=== PATIENT | female | born 2000 | race American Indian/Alaskan Native ===

== ENCOUNTER 2020-08-03 13:53 | Emergency (ER) | payer MEDICAID, OTHER ==
[2020-08-03 14:59] VITALS: BP 132/62
--- NOTE | 2020-08-03 15:44 | Emergency Department Report ---
Chief Complaint: Eye Problems Stated Complaint: ALEX EYE PAIN Time Seen by Provider: 08/03/20 15:25 - HPI History of Present Illness: 19-year-old -[place] female patient presents with complaints of bilateral eye light sensitivity and intermittent pressure x2 weeks. She denies any current pain, headaches, vision changes, numbness/tingling/weakness in her limbs, difficulty with speech/ambulation, or contact lens use. She states she called the assistant professor of mathematics today and they referred her to the emergency department. No past medical history per patient. She denies any drainage, itching, or redness to the eyes. - Exam Vital Signs: Vital Signs 08/03/20 14:58 Temperature 98.3 F Pulse Rate 60 Respiratory 15 Rate Blood Pressure 132/62 O2 Sat by Pulse 100 Oximetry MSE screening note: Focused history and physical exam performed. Due to findings the following was ordered: ED Medical Decision Making - Medical Decision Making Eye exam is normal. Recommend follow-up with the assistant professor of mathematics within 3 days. Discussed signs and symptoms that should prompt immediate return to the emergency department in detail with patient who verbalizes understanding. Her vitals are normal normal, she is well-appearing, she is stable for discharge home. ED Disposition for MSE Clinical Impression: Photophobia of both eyes Disposition: Z-07 MED SCREENING EXAM-LEFT Is pt being admited?: No Condition: Stable Instructions: Photophobia Referrals: RACHEL BARR MD [Staff Physician] - 3-5 Days ED Physical Exam - General Limitations: No Limitations General appearance: alert, in no apparent distress - Head Head exam: Present: atraumatic, normocephalic - Eye Eye exam: Present: normal appearance, PERRL, EOMI. Absent: scleral icterus, conjunctival injection, periorbital swelling, periorbital tenderness - ENT ENT exam: Present: normal exam - Neck Neck exam: Present: normal inspection, full ROM - Respiratory Respiratory exam: Absent: respiratory distress - Cardiovascular Cardiovascular Exam: Present: regular rate - Neurological Exam Neurological exam: Present: alert, oriented X3, CN II-XII intact, normal gait - Psychiatric Psychiatric exam: Present: normal affect, normal mood - Skin Skin exam: Present: warm, dry, intact, normal color. Absent: rash ED Review of Systems ROS: Stated complaint: ALEX EYE PAIN Other details as noted in HPI Constitutional: no symptoms reported. denies: diaphoresis, fever, malaise, weakness Eyes: eye pain. denies: eye discharge, vision change ENT: denies: ear pain, throat pain Respiratory: denies: cough, shortness of breath Cardiovascular: denies: chest pain Skin: denies: change in color Neurological: denies: headache, weakness, numbness, paresthesias, abnormal gait
== END 2020-08-03 19:00 | disposition left against medical advice (07) ==
LOC: ED 13:53
DX: H57.13 Ocular pain, bilateral (principal); Z53.21 Procedure and treatment not carried out due to patient leaving prior to being seen by health care provider

== ENCOUNTER 2021-06-18 03:57 | Emergency (ER) | payer OTHER ==
[2021-06-18 04:20] VITALS: BP 131/70
[2021-06-18] MEDS ORDERED: ONDANSETRON 4 MG ODT TAB PO ONE (04:51)
[2021-06-18] MEDS ORDERED: IBUPROFEN 600 MG TAB PO ONE (04:51)
[2021-06-18] MEDS ORDERED: HYDROcodone/ACETAMINOPHEN 5-325 MG TAB PO ONE (04:51)
[2021-06-18] MEDS ORDERED: AMOXICILLIN/K CLAV 875/125MG TAB PO ONE (04:51)
--- NOTE | 2021-06-18 04:57 | Emergency Department Report ---
ED General Adult HPI - General Chief complaint: Dental/Oral Stated complaint: DENTAL PAIN Source: patient Mode of arrival: Ambulatory Limitations: No Limitations - History of Present Illness Initial comments: Patient is a nulliparous 20-year-old -[place] female with no past medical history presents to the ED with complaint of acute onset persistent diffuse multiple toothaches with swollen gums for the last 3 days, worse in the last 24 hours. Patient states that she has not been able to eat anything because of worsening tooth ache. Patient denies fever, chills, nausea, vomiting, traumatic injury, sore throat, nasal and sinus congestion, headache, neck pain, chest pain or shortness of breath. MD Complaint: dental and mouth pain -: Sudden, days(s) (3) Location: mouth Radiation: non-radiation Severity scale (0 -10): 7 Quality: aching, sharp Consistency: constant Improves with: none Worsens with: eating Associated Symptoms: denies other symptoms. denies: confusion, chest pain, cough, diaphoresis, fever/chills, headaches, loss of appetite, malaise, nausea/vomiting, rash, seizure, shortness of breath, syncope, weakness Treatments Prior to Arrival: none - Related Data Previous Rx's Medication Instructions Recorded Last Taken Type Acetaminophen/Codeine [Tylenol 1 tab PO Q6H PRN #10 tab 06/18/21 Unknown Rx /Codeine # 3 tab] Clindamycin [Clindamycin CAP] 300 mg PO Q8H #30 cap 06/18/21 Unknown Rx Ketorolac [Toradol] 10 mg PO Q8H PRN #20 tab 06/18/21 Unknown Rx Allergies Allergy/AdvReac Type Severity Reaction Status Date / Time No Known Allergies Allergy Unverified 08/03/20 14:58 ED Review of Systems ROS: Stated complaint: DENTAL PAIN Other details as noted in HPI Constitutional: denies: chills, fever Eyes: denies: eye pain, eye discharge, vision change ENT: dental pain (Multiple dental pain; upper and lower gum pain). denies: ear pain, throat pain, hearing loss Respiratory: denies: cough, shortness of breath, wheezing Cardiovascular: denies: chest pain, palpitations Endocrine: no symptoms reported Gastrointestinal: denies: abdominal pain, nausea, diarrhea Genitourinary: denies: urgency, dysuria, discharge Musculoskeletal: denies: back pain, joint swelling, arthralgia Skin: denies: rash, lesions Neurological: denies: headache, weakness, paresthesias Psychiatric: denies: anxiety, depression Hematological/Lymphatic: denies: easy bleeding, easy bruising ED Past Medical Hx - Past Medical History Previous Medical History?: No - Surgical History Past Surgical History?: No - Social History Smoking Status: Never Smoker Substance Use Type: None - Medications Home Medications: Home Medications Medication Instructions Recorded Confirmed Last Taken Type Acetaminophen/Codeine [Tylenol 1 tab PO Q6H PRN #10 tab 06/18/21 Unknown Rx /Codeine # 3 tab] Clindamycin [Clindamycin CAP] 300 mg PO Q8H #30 cap 06/18/21 Unknown Rx Ketorolac [Toradol] 10 mg PO Q8H PRN #20 tab 06/18/21 Unknown Rx ED Physical Exam - General Limitations: No Limitations General appearance: alert, in no apparent distress - Head Head exam: Present: atraumatic, normocephalic, normal inspection - Eye Eye exam: Present: normal appearance, PERRL, EOMI Pupils: Present: normal accommodation - ENT ENT exam: Present: mucous membranes moist, TM's normal bilaterally, normal external ear exam, other (Swollen, upper and lower gingiva; multiple dental caries; palpable maxillary and mandibular premolar and molar teeth) - Neck Neck exam: Present: normal inspection, full ROM. Absent: tenderness - Respiratory Respiratory exam: Present: normal lung sounds bilaterally. Absent: respiratory distress, wheezes, rales, rhonchi, chest wall tenderness, accessory muscle use, decreased breath sounds - Cardiovascular Cardiovascular Exam: Present: normal rhythm, bradycardia, normal heart sounds. Absent: systolic murmur, diastolic murmur, rubs, gallop - GI/Abdominal GI/Abdominal exam: Present: soft, normal bowel sounds. Absent: tenderness, guarding, hyperactive bowel sounds, hypoactive bowel sounds, organomegaly - Extremities Exam Extremities exam: Present: normal inspection, full ROM, normal capillary refill - Back Exam Back exam: Present: normal inspection, full ROM. Absent: tenderness, CVA tenderness (R), CVA tenderness (L), muscle spasm, paraspinal tenderness, vertebral tenderness - Neurological Exam Neurological exam: Present: alert, oriented X3, CN II-XII intact, normal gait, reflexes normal - Psychiatric Psychiatric exam: Present: normal affect, normal mood - Skin Skin exam: Present: warm, dry, intact, normal color. Absent: rash ED Course Vital Signs 06/18/21 04:17 Temperature 98.1 F Pulse Rate 51 L Respiratory 18 Rate Blood Pressure 131/70 O2 Sat by Pulse 100 Oximetry ED Medical Decision Making - Medical Decision Making This is a nulliparous 20-year-old -[place] female with no past medical history presents to the ED with complaint of acute onset persistent diffuse multiple toothaches with swollen gums for the last 3 days, worse in the last 24 hours. Patient states that she has not been able to eat anything because of worsening tooth ache. In the ED, patient is alert and oriented x3 and is not in any distress. Patient was treated for pain in the ED and on reevaluation, patient's pain is well controlled medication. Patient was discharged home on pain medications and advised to follow-up with her dentist in 7 to 10 days for reevaluation return to the ED immediately if symptoms get worse. - Differential Diagnosis Dental abscess; gingivitis; dental caries Critical care attestation.: If time is entered above; I have spent that time in minutes in the direct care of this critically ill patient, excluding procedure time. ED Disposition Clinical Impression: Dental abscess, Dental caries, Acute gingivitis Disposition: HOME / SELF CARE / HOMELESS Is pt being admited?: No Does the pt Need Aspirin: No Condition: Stable Instructions: Dental Abscess, [id number], Trench Mouth Additional Instructions: Take medication with food, drink plenty fluids and follow-up with your dentist in 7 to 10 days for reevaluation. Return to the ED immediately if symptoms get worse. Prescriptions: Clindamycin [Clindamycin CAP] 300 mg PO Q8H #30 cap Ketorolac [Toradol] 10 mg PO Q8H PRN #20 tab PRN Reason: Pain Acetaminophen/Codeine [Tylenol /Codeine # 3 tab] 1 tab PO Q6H PRN #10 tab PRN Reason: Pain , Severe (7-10) Referrals: [facility] [Outside] - 7-10 days Time of Disposition: 04:55 Print Language: [place]
== END 2021-06-18 05:56 | disposition home or self-care (01) ==
LOC: ED 03:57
DX: K04.7 Periapical abscess without sinus (principal); K02.9 Dental caries, unspecified; K05.00 Acute gingivitis, plaque induced
CPT/HCPCS: 99282; J3490; Q0162

== ENCOUNTER 2021-10-22 03:57 | Emergency (ER) | payer SELFPAY ==
[2021-10-22 11:04] VITALS: BP 111/63
[2021-10-22] MEDS ORDERED: ACETAMINOPHEN 500 MG TAB PO ONE (11:16)
[2021-10-22 11:25] LABS: HCG Qualitative,Urine Negative (Negative)
[2021-10-22 12:27] LABS: Bilirubin,Urine Negative (Negative); Blood,Urine Negative (Negative); Color,Urine Straw (Yellow); PH,Urine 7.5 (5.0-7.0)
[2021-10-22 12:28] LABS: Protein,Urine <15 mg/dL mg/dL (Negative); Urobilinogen,Urine < 2.0 mg/dL (<2.0)
[2021-10-22 12:35] LABS: Bacteria,Urine 4+ /HPF (Negative); RBC,Urine < 1.0 /HPF (0.0-6.0); WBC,Urine < 1.0 /HPF (0.0-6.0)
--- NOTE | 2021-10-22 13:20 | Emergency Department Report ---
ED Female HPI - General Chief complaint: Urogenital-Female Stated complaint: VAGINAL PAIN/BURN AND ITCH Time Seen by Provider: 10/22/21 07:58 Source: patient Mode of arrival: Ambulatory Limitations: No Limitations - Related Data Previous Rx's Medication Instructions Recorded Last Taken Type Acetaminophen/Codeine [Tylenol 1 tab PO Q6H PRN #10 tab 06/18/21 Unknown Rx /Codeine # 3 tab] Clindamycin [Clindamycin CAP] 300 mg PO Q8H #30 cap 06/18/21 Unknown Rx Ketorolac [Toradol] 10 mg PO Q8H PRN #20 tab 06/18/21 Unknown Rx Allergies Allergy/AdvReac Type Severity Reaction Status Date / Time No Known Allergies Allergy Verified 10/22/21 04:25 ED Review of Systems ROS: Stated complaint: VAGINAL PAIN/BURN AND ITCH Other details as noted in HPI ED Past Medical Hx - Past Medical History Previous Medical History?: No - Surgical History Past Surgical History?: No - Social History Smoking Status: Never Smoker Substance Use Type: None - Medications Home Medications: Home Medications Medication Instructions Recorded Confirmed Last Taken Type Acetaminophen/Codeine [Tylenol 1 tab PO Q6H PRN #10 tab 06/18/21 Unknown Rx /Codeine # 3 tab] Clindamycin [Clindamycin CAP] 300 mg PO Q8H #30 cap 06/18/21 Unknown Rx Ketorolac [Toradol] 10 mg PO Q8H PRN #20 tab 06/18/21 Unknown Rx ED Physical Exam - General Limitations: No Limitations ED Course Vital Signs 10/22/21 10/22/21 04:22 11:03 Temperature 98.6 F Pulse Rate 55 L 58 L Respiratory 18 18 Rate Blood Pressure 124/73 111/63 [Left] O2 Sat by Pulse 100 99 Oximetry Critical care attestation.: If time is entered above; I have spent that time in minutes in the direct care of this critically ill patient, excluding procedure time. ED Disposition Clinical Impression: Dysuria Disposition: 01 HOME / SELF CARE / HOMELESS Is pt being admited?: No Does the pt Need Aspirin: No Condition: Stable Instructions: Dysuria Referrals: PRIMARY CARE, [Primary Care Provider] - 3-5 Days MIRIAM PATTON MD [Staff Physician] - 3-5 Days Time of Disposition: 13:17
== END 2021-10-22 13:20 | disposition home or self-care (01) ==
LOC: ED 03:57
DX: R30.0 Dysuria (principal); Z79.899 Other long term (current) drug therapy
CPT/HCPCS: 81001; 81025; 99283